=== PATIENT | male | born 1980 | race Caucasian/White ===

== ENCOUNTER 2019-05-29 19:02 | Emergency (ER) | payer OTHER ==
[~2019-05-29] VITALS: Ht 185.4 cm; Wt 97.5 kg
[2019-05-29] MEDS ORDERED: PROBIOTIC1 EAC2 (19:27)
[2019-05-29] MEDS ORDERED: SYNTHROID200 MCG (19:27)
== END 2019-05-29 22:32 | disposition home or self-care (01) ==
LOC: ER 19:02
DX: S96.812A Strain of other specified muscles and tendons at ankle and foot level, left foot, initial encounter (principal); X50.0XXA Overexertion from strenuous movement or load, initial encounter; Y93.89 Activity, other specified; Y92.89 Other specified places as the place of occurrence of the external cause; Y99.8 Other external cause status